=== PATIENT | male | born 1990 | race Caucasian/White ===

== ENCOUNTER 2025-07-26 23:39 | Emergency (ER) | payer MEDICAID ==
[~2025-07-26] VITALS: Ht 175.3 cm; Wt 81.8 kg
[2025-07-26 23:43] VITALS: BP 127/90; PULSE 100; RESP 16; TEMP 97.9; O2SAT 99
[2025-07-27 00:13] LABS: PLATELET COUNT (AUTO) 292 K/uL (150-450); RED BLOOD CELL COUNT(AUTO) 4.85 MIL/uL (4.50-5.90); RED CELL DISTRIBUTION WIDTH 13.3 % (11.5-14.5); WHITE BLOOD COUNT (AUTO) 7.6 K/uL (4.5-11.0)
[2025-07-27 00:22] LABS: CALCIUM, TOTAL 9.1 mg/dL (8.8-10.5); CREATININE 0.81 mg/dL (0.60-1.30); GLOMERULAR FILTR. RATE CALC > 60 mL/min (>60); GLUCOSE,RANDOM 116 mg/dL (70-110); SODIUM SERUM 145 mmol/L (136-145); UREA NITROGEN, BLOOD 7 mg/dL (7-18)
[2025-07-27 00:31] LABS: TROPONIN I-HIGH SENSITIVITY 5 ng/L (<76)
[2025-07-27 00:35] LABS: PH,URINE DRUG SCREEN 6.5 (5.0-8.0)
[2025-07-27 00:41] LABS: AMPHET/METH SCREEN,URINE NEGATIVE (NEGATIVE); BARBITURATE SCREEN, URINE NEGATIVE (NEGATIVE); CANNABINOID SCREEN,URINE NEGATIVE (NEGATIVE); COCAINE SCREEN,URINE NEGATIVE (NEGATIVE); METHADONE SCREEN, URINE NEGATIVE (NEGATIVE)
[2025-07-27 00:54] LABS: ALCOHOL, URINE DRUG SCREEN POSITIVE (NEGATIVE)
== END 2025-07-27 02:51 | disposition left against medical advice (07) ==
LOC: EMS 23:53
DX: R06.02 Shortness of breath (principal); Z79.899 Other long term (current) drug therapy
CPT/HCPCS: 71045; 99281; 80048; 84484; 85025; 36415; 93005; 80307; G0480